=== PATIENT | male | born 1975 | race Caucasian/White ===

== ENCOUNTER 2017-09-12 20:37 | Observation (INO) | payer BC ==
[~2017-09-12 20:37] MED LIST: Iopamidol 370 76% 100 ML VIAL ONE
[2017-09-12 21:00] LABS: #Lymphocytes 1.2 thou/uL (1.20-3.40); #Monocytes 0.6 thou/uL (0.11-0.59); #Neutrophils 9.2 thou/uL (1.40-6.50); %Basophils 0.4 % (0.0-1.0); %Eosinophils 0.4 % (0.0-10.0); %Lymphocytes 11.1 % (21.0-51.0); %Monocytes 5.7 % (0.0-10.0); Hematocrit 44.3 % (42.0-52.0); Mean Platelet Volume 6.3 fL (7.4-10.4); Red Blood Cell (RBC) Count 5.02 mill/uL (4.70-6.10); White Blood Cell (WBC) Count 11.1 thou/uL (4.8-10.8)
[2017-09-12 21:14] LABS: Anion Gap 14 mmol/L (10-20); BUN (Urea Nitrogen) 15 mg/dL (8.9-20.6); Calc. Creatinine Clearance 0 mL/min (70-130); Calcium 9.6 mg/dL (7.8-10.44); Carbon Dioxide 28 mmol/L (22-29); Chloride 100 mmol/L (98-107); Estimated GFR-MDRD 61
[2017-09-12 21:18] LABS: Troponin I Less than 0.010 ng/mL (< 0.028)
[2017-09-12] MEDS ORDERED: Lorazepam 2 MG/ML VIAL ONE ×2 (21:25→22:44)
--- NOTE | 2017-09-12 21:53 | RAD ---
TWO VIEWS CHEST: History: Radiating chest pain. FINDINGS: PA and lateral views obtained. The lungs are well aerated. No evidence of active intrathoracic disea se seen. No evidence of effusions, pneumonia, or pneumothorax seen. IMPRESSION: Normal two views chest. POS: [facility]
[2017-09-12 22:56] LABS: Troponin I Less than 0.010 ng/mL (< 0.028)
--- NOTE | 2017-09-12 23:45 | CT ---
CTA CHEST: History: Dyspnea. Technique: Contrast enhanced CTA of the chest was performed. 2D and 3D reconstructed images performe d on an independent 3D workstation. FINDINGS: CTA chest demonstrates no evidence of filling defects seen in the pulmonary artery to suggest pulmon wilian emboli. No evidence of mediastinal, axillary, or hilar lymphadenopathy is seen. No evidence of pulmonary parenchymal lesions seen. Calcified granuloma is seen in the right middle l obe. There is marked thinning of the right renal cortex with findings suggesting chronic hydronephrosis i n the right kidney. IMPRESSION: 1. Renal parenchymal atrophy in the visualized portion of the right kidney. 2. No evidence of pulmonary emboli or lung parenchymal lesions seen. 3. Hypodense lesion seen in the liver most compatible with hepatic cysts. POS: [facility]
[2017-09-13] MEDS ORDERED: Ondansetron HCl/PF 4 MG/2 ML Vial IVP PRN (01:36)
[2017-09-13] MEDS ORDERED: Ondansetron ODT 4 MG TAB SL PRN (01:36)
[2017-09-13] MEDS ORDERED: Acetaminophen 325 MG TAB PO PRN ×2 (01:36→02:45)
[2017-09-13 01:51] VITALS: BMI 25.6
[2017-09-13] MEDS ORDERED: Calcium Carbonate 500 MG ChewTAB PO PRN (02:24)
[2017-09-13] MEDS ORDERED: Bisacodyl 10 MG SUPP PR PRN (02:24)
[2017-09-13] MEDS ORDERED: Bisacodyl 5 MG TAB PO PRN (02:24)
[2017-09-13] MEDS ORDERED: Enoxaparin Sodium 40 MG/0.4 ML SYRINGE SC SCH (02:30)
[2017-09-13] MEDS ORDERED: Nitroglycerin 4.9 GM Bottle SL PRN (02:33)
[2017-09-13] MEDS ORDERED: hydrALAZINE 20 MG/ML VIAL SLOW IVP PRN (02:34)
[2017-09-13] MEDS ORDERED: Potassium Chloride 20 MEQ TAB PO SCH (02:45)
[2017-09-13] MEDS ORDERED: Ibuprofen 800 MG TAB PO SCH (02:45)
[2017-09-13] MEDS: Sodium Chloride 0.9% 1,000 ML IV SCH ×2 (03:01→12:23)
[2017-09-13] MEDS: Ibuprofen 800 MG TAB PO SCH ×2 (03:02→15:06)
[2017-09-13 03:06] LABS: #Monocytes 0.9 thou/uL (0.11-0.59); #Neutrophils 7.5 thou/uL (1.40-6.50); %Basophils 0.2 % (0.0-1.0); %Eosinophils 0.2 % (0.0-10.0); %Lymphocytes 10.6 % (21.0-51.0); %Monocytes 9.7 % (0.0-10.0); Hematocrit 41.5 % (42.0-52.0); Mean Platelet Volume 6.1 fL (7.4-10.4); Red Blood Cell (RBC) Count 4.66 mill/uL (4.70-6.10); White Blood Cell (WBC) Count 9.4 thou/uL (4.8-10.8)
[2017-09-13 03:21] LABS: Anion Gap 10 mmol/L (10-20); BUN (Urea Nitrogen) 16 mg/dL (8.9-20.6); Calc. Creatinine Clearance 82 mL/min (70-130); Calcium 9.1 mg/dL (7.8-10.44); Carbon Dioxide 29 mmol/L (22-29); Chloride 102 mmol/L (98-107); Estimated GFR-MDRD 63
[2017-09-13 03:25] LABS: Troponin I Less than 0.010 ng/mL (< 0.028)
[2017-09-13 03:31] LABS: Magnesium 2.1 mg/dL (1.6-2.6)
[2017-09-13 03:39] LABS: Troponin I Less than 0.010 ng/mL (< 0.028)
[2017-09-13 03:48] LABS: Phosphorus 1.9 mg/dL (2.3-4.7)
[2017-09-13 06:15] LABS: Troponin I Less than 0.010 ng/mL (< 0.028)
[2017-09-13] MEDS ORDERED: Metoprolol Tartrate 5 MG/5 ML VIAL IVP SCH (06:15)
--- NOTE | 2017-09-13 08:33 | ULT ---
RIGHT UPPER QUADRANT ULTRASOUND: Date: 09-13-17 Comparison: None. History: Chest pain, shortness of breath. Technique: Multiplanar grayscale sonographic imaging of the right upper quadrant obtained. FINDINGS: Imaged pancreatic parenchyma is unremarkable. Body and tail are partially obscured by bowel gas. No focal liver lesion is noted. No gallbladder wall thickening or pericholecystic fluid. Circular Ripsaw Operator reports a negative Naik sign. No gallstones are seen. Common bile duct measures 5 mm, within normal limits. Right kidney is small, measuring 8.5 cm in craniocaudal dimension. The right kidney demonstrates pro minent cortical thinning with what appears to be marked hydronephrosis. Renal atrophy with cortical thinning and marked hydronephrosis suggests sequella of chronic obstruction. Recommend CT of abdomen and pelvis for full assessment. IMPRESSION: 1. Abnormal appearance of the right kidney as above. Recommend follow up CT of abdomen and pelvis. 2. No evidence for cholelithiasis, cholecystitis, or biliary dilatation. POS: [facility]
[2017-09-13] MEDS ORDERED: Famotidine 20 MG TAB PO SCH (09:00)
--- NOTE | 2017-09-13 12:09 | EKG ---
Test Reason : Blood Pressure : / mmHG Vent. Rate : 093 BPM Atrial Rate : 093 BPM P-R Int : 150 ms QRS Dur : 088 ms QT Int : 346 ms P-R-T Axes : 058 045 036 degrees QTc Int : 430 ms Normal sinus rhythm Normal ECG No previous ECGs available Confirmed by DR. Levar TATE ([id number]) on 09/13/2017 12:09:13 PM Referred By: [facility]DR[facility] Confirmed By:DR. Levar TATE
[2017-09-13 16:22] VITALS: BP 119/79; TEMP 98.5
--- NOTE | 2017-09-14 05:58 | HP ---
DATE OF SERVICE: 09/13/2017 CHIEF COMPLAINT: Chest pain. HISTORY OF PRESENT ILLNESS: The patient is a 42-year-old male, who was coming in from out of town and started developing some chest discomfort and pressure. He noted that it kind of got wo rse over several hours and last evening, he noticed that chest pain was better if he would lean over . He states that his chest pain is made worse by coughing and taking a deep breath. He denied naus ea, vomiting, palpitations, and diaphoresis. The patient was placed on observation and cardiac enzy mes were negative. The patient was monitored and no other significant abnormalities were noted. So me electrolytes were abnormal and these have been replaced. The patient is feeling better this morn ing after being given a dose of ibuprofen. The patient is scheduled to have an echo, but if he graciela ins stable this afternoon, he will likely go home. Please see the resident's dictation for the labs, further history and physical exam. ASSESSMENT AND PLAN: Suspect pericarditis: Echo has been ordered. The patient will continue to be treated with nonsteroidal anti-inflammatory drug, who likely to be discharged this afternoon if kristen rything remains stable. Please see the resident's dictation for full history and physical, assessment and plan.
--- NOTE | 2017-09-14 13:45 | DIS-2 ---
DATE OF ADMISSION: 09/13/2017 DATE OF DISCHARGE: 09/13/2017 ADMITTING RESIDENT: Elpidio Baptiste M.D. DISCHARGE RESIDENT: Heide Colby M.D.. ADMITTING ATTENDING: Haley Rehman M.D. DISCHARGE ATTENDING: Haley Rehman M.D.. CONSULTATIONS: None. PROCEDURES: Echocardiogram. PRIMARY DIAGNOSIS: 1. Pericarditis. 2. Atypical chest pain, likely secondary to pericarditis. 3. Leukocytosis. 4. Tachycardia. 5. Hypophosphatemia. 6. Elevated CRP. DISCHARGE MEDICATIONS: 1. Ibuprofen 600 mg q.8h. p.r.n. 2. Melatonin 10 mg p.o. at bedtime. 3. Flonase 2 sprays each naris daily. DISCONTINUED MEDICATIONS: None. HISTORY OF PRESENT ILLNESS/HOSPITAL COURSE: This is a 42-year-old male who [place] [facility] who presented with chest pain in the center of his chest, radiated to his back. It was relie eben by sitting forward. He also had a fever of 100.6 and tachycardic with a white count was 11.1 an d 82.4% neutrophils and a CRP of 1.3. He had a chest x-ray that showed no evidence of effusion, pne umonia, or pneumothorax. He had a CTA done that showed renal parenchymal atrophy in the visualized portion of the right kidney. No evidence of pulmonary emboli or lung parenchymal lesions seen. Hyp odense lesion seen in the liver, most compatible with hepatic cysts. He had an abdominal ultrasound done that showed abnormal appearance of the right kidney. No evidence of cholelithiasis, cholecyst itis, or biliary dilatation. The patient had known about his right kidney in the past. The patient had no evidence of ST changes on his EKG. He did have Q-waves in the lateral leads. The patient's chest pain was relieved by ibuprofen and he was given a dose of metoprolol as well as Tylenol which resolved his tachycardia and his fever as well resolved. His white count came down and the patient felt much better after all of this. An echocardiogram was done, which is still awaiting a read. T he patient wished to be discharged and as the patient was in stable condition and the suspicion was that this was related to pericarditis, the patient can be discharged and followed up with a phone ca ll pending the results of the echocardiogram. The patient was amenable to this plan. DISPOSITION: Stable. DISCHARGE INSTRUCTIONS: 1. Location: Home. 2. Diet: Heart healthy. 3. Activity: As tolerated. 4. Follow up with primary care physician within 7-14 days.
== END 2017-09-13 18:00 | disposition home or self-care (01) ==
LOC: SCSER 20:37 → 2SW 09-13 00:23
PROVIDERS: ADMIT Family Medicine; ATTEND Family Medicine
DX: I31.9 Disease of pericardium, unspecified (principal); R07.89 Other chest pain; D72.829 Elevated white blood cell count, unspecified; R00.0 Tachycardia, unspecified; E83.39 Other disorders of phosphorus metabolism; R79.82 Elevated C-reactive protein (CRP); R50.9 Fever, unspecified; N26.1 Atrophy of kidney (terminal); K76.89 Other specified diseases of liver; R06.02 Shortness of breath; Z79.51 Long term (current) use of inhaled steroids; Z79.899 Other long term (current) drug therapy
CPT/HCPCS: 36415; 71020; 71275; 76705; 80048; 82553; 83735; 83880; 84100; 84443; 84484; 85025; 85652; 86038; 86140; 87040; 87389; 93005; 93010; 93306; 96361; 96372; 96374; 96375; 96376; G0378; J1650; J2060